=== PATIENT | male | born 1965 | race Caucasian/White ===

== ENCOUNTER 2017-12-18 10:09 | Emergency (ER) | payer BC ==
[~2017-12-18] VITALS: Ht 165.1 cm; Wt 74.5 kg
[2017-12-18 10:18] VITALS: BP 160/101; PULSE 80; RESP 16; TEMP 97.8; O2SAT 99
[2017-12-18] MEDS ORDERED: HYDR-3288 PO (10:26)
[2017-12-18] MEDS ORDERED: DICY10 PO (10:26)
[2017-12-18] MEDS ORDERED: RANI150T PO (10:26)
[2017-12-18] MEDS ORDERED: NEUR100C PO (10:26)
--- NOTE | 2017-12-18 10:39 | PD ---
HPI Chief Complaint: Eye Problems/Injury Time Seen by Provider: 10:29 Travel History International Travel<30 days: No Contact w/Intl Traveler<30days: No Traveled to known affect area: No History of Present Illness HPI 52-year-old male presents the emergency department with bilateral eyelid itching, redness, and burning. Patient is down visiting from [place], where he recently had his tear ducts plugged, by his meal attendant for severe dry eye. This occurred over 1 month ago. He states in the last week he has had increased erythema, swelling, and itchiness to both eyes with worsening swelling in the last 24 hours. He denies significant eye pain or visual changes. Patient denies sinus congestion, headache, sore throat, or upper respiratory symptoms. He has no other complaints. He is allergic to sulfa. [facility] Social History Alcohol Use: Yes Tobacco Use: Yes Substance Use: No Allergies-Medications (Allergen,Severity, Reaction): Coded Allergies: Sulfa (Sulfonamide Antibiotics) (Verified Allergy, Severe, Confusion, 12/18) Reported Meds & Prescriptions Reported Meds & Active Scripts Active Xnwzbbxa-Ajboapgyh-Wtntmfnlhisqv Opth Oint 3.5 Gm Oint 1 Applic EACH EYE QID Reported Ranitidine (Ranitidine HCl) 150 Mg Tab 150 Mg PO DAILY Neurontin (Gabapentin) 100 Mg Cap 100 Mg PO TID Bentyl (Dicyclomine HCl) 10 Mg Cap 10 Mg PO BID PRN [place] (Hydrocodone-Acetaminophen) 7.5-325 mg Tab 1 Tab PO Q6H PRN Review of Systems Except as stated in HPI: all other systems reviewed are Neg General / Constitutional: No: Fever, Chills Eyes: Positive: Drainage, Tearing, Other (Eyelid swelling and burning.), No: Diploplia, Blurred Vision, Photophobia, Redness, Foreign Body Sensation, Pain, Blind Spots, Visual changes, Blindness HENT: No: Headaches, Vertigo, Lightheadedness, Sore Throat, Rhinitis, Rhinorrhea, Congestion, Nosebleed, Neck Stiffness, Neck Pain, Dental Difficulties, Earache Cardiovascular: No: Chest Pain or Discomfort Respiratory: No: Shortness of Breath Gastrointestinal: No: Abdominal Pain Genitourinary: No: Dysuria Musculoskeletal: No: Pain Skin: No Rash Neurologic: No: Weakness Psychiatric: No: Depression Endocrine: No: Polydipsia Hematologic/Lymphatic: No: Easy Bruising Physical Exam Narrative GENERAL: Patient appears in mild distress per SKIN: Warm and dry. Normal color. Normal turgor. HEAD: Atraumatic. Normocephalic. EYES: Pupils equal and round. No scleral icterus. No injection or drainage. Both upper eyelids are puffy and erythematous in both eyes. The sclerae are clear. The cornea are normal. No signs of periorbital cellulitis noted. Ocular motions are full and without tenderness per ENT: No nasal bleeding or discharge. Mucous membranes pink and moist. TMs are clear. Pharynx is clear. Airways patent. No sinus tenderness to palpation NECK: Trachea midline. No JVD. CARDIOVASCULAR: Regular rate and rhythm. RESPIRATORY: No accessory muscle use. Clear to auscultation. Breath sounds equal bilaterally. MUSCULOSKELETAL: Extremities without clubbing, cyanosis, or edema. No obvious deformities. NEUROLOGICAL: Awake and alert. No obvious cranial nerve deficits. Motor grossly within normal limits. Five out of 5 muscle strength in the arms and legs. Normal speech. PSYCHIATRIC: Appropriate mood and affect; insight and judgment normal. Data Data Last Documented VS Vital Signs Date Time Temp Pulse Resp B/P (MAP) Pulse Ox O2 Delivery O2 Flow Rate FiO2 12/18/17 10:18 97.8 80 16 160/101 (120) 99 MDM Medical Decision Making Medical Screen Exam Complete: Yes Emergency Medical Condition: Yes Differential Diagnosis Periorbital dermatitis. Allergic reaction. Cellulitis. Narrative Course I do not suspect a serious eye infection at this time. Patient will be placed on neomycin/polymyxin/dexamethasone ophthalmic ointment every 4 hours while awake. 1 refills given. Patient to take [id number]-jymcpsq Benadryl and Diana as needed. Follow-up with meal attendant upon return to [place] or return here if worsening symptoms develop. Diagnosis Primary Impression: Periorbital dermatitis Referrals: [employer] Patient Instructions: Blepharitis (ED), General Instructions Additional Instructions: I do not suspect a serious eye infection at this time. Patient will be placed on neomycin/polymyxin/dexamethasone ophthalmic ointment every 4 hours while awake. 1 refills given. Patient to take jpak-uyo-xijprpr Benadryl and Diana as needed. Follow-up with meal attendant upon return to [place] or return here if worsening symptoms develop. Scripts Uybdwqrn-Qonhkdobv-Vpqwnbbdwwrxj Opth Oint (Hjxzmtcq-Dlyzkqdsy-Esobqweskmvbw Opth Oint) 3.5 Gm Oint 1 APPLIC EACH EYE QID for Infection, #3.5 GM 1 Refill Prov: Mian Carballo MD 12/18/17 Disposition: 01 DISCHARGE HOME Condition: Stable Bonilla Lynch Dec 18, 2017 10:39
[2017-12-18] MEDS ORDERED: NEOM0.1O4 EACH EYE (10:40)
== END 2017-12-18 11:03 | disposition home or self-care (01) ==
LOC: NEPK 10:09
DX: L30.9 Dermatitis, unspecified (principal); Z72.0 Tobacco use; Z88.2 Allergy status to sulfonamides; Z79.899 Other long term (current) drug therapy
CPT/HCPCS: 99283